=== PATIENT | male | born 1960 | race Caucasian/White ===

== ENCOUNTER → 2017-11-30 | Outpatient (CLI) | payer BC, OTHER ==
[~2017-11-30] MED LIST: ASPIRIN EC325 M1 PO; COLACE100 MG; ENDOCET 5-3251 EACH PO; HYDROCODON-ACE1 EAC7 PO; LISINOPRIL40 MG PO; MEDROL DOSPAK21 TAB PO; TOPROL XL100 MG PO; [UNRECOGNIZED DRUG - CODE]
== END ==
LOC: RAD 09:16
DX: I10 Essential (primary) hypertension (principal)